=== PATIENT | male | born 1965 | race Caucasian/White ===

== ENCOUNTER 2016-07-02 14:15 | Inpatient (IN) ==
[2016-07-02] MEDS ORDERED: NON-FORMULARY MEDICATION 1 EACH EACH (Oxygen [Oxygen] 3 L) NS SCH (21:45)
[2016-07-02] MEDS ORDERED: D5% in Water 1,000 ML IVC PRN (21:49)
[2016-07-02] MEDS ORDERED: *HR* Dextrose 50 % in Water (Syg) 50 ML SYRINGE IVP PRN (21:49)
[2016-07-02] MEDS ORDERED: Dextrose Gel 15 GM PO PRN ×2 (21:49)
[2016-07-02] MEDS: Insulin LISPRO 300 UNITS/3 ML VIAL SQ SCH (22:35)
[2016-07-02] MEDS: *HR* OxyCODONE Immed Rel 5 MG TABLET PO PRN (22:36)
[2016-07-02] MEDS: INSULIN DEGLUDEC SQ SCH (22:38)
[2016-07-02] MEDS ORDERED: MOM Conc 10 ML UD.LIQ PO PRN (23:11)
[2016-07-03] MEDS: Acetaminophen 325 MG TABLET PO PRN (01:10)
[2016-07-03] MEDS: *HR* OxyCODONE Immed Rel 5 MG TABLET PO PRN ×5 (03:10→21:43)
[2016-07-03 06:44] LABS: Basophils # 0.1 K/mcL (0.0-0.2); Basophils % 0.8 %; Eosinophils # 0.5 K/mcL (0.0-0.6); Eosinophils % 4.1 %; Hematocrit 28.2 % (37.5-50.1); Hemoglobin 8.6 g/dL (12.9-16.9); Immature Granulocytes % 0.4 % (0-4); Lymphocytes # 2.6 K/mcL (0.6-4.6); Lymphocytes % 22.3 %; Mean Corpuscular HGB Conc 30.5 g/dL (31.6-35.5); Mean Corpuscular Hemoglobin 25.4 pg (28.0-33.3); Mean Corpuscular Volume 83.4 fL (83.0-100.0); Mean Platelet Volume 9.3 fL (9.4-12.4); Monocytes # 1.2 K/mcL (0.0-1.3); Monocytes % 9.8 %; Neutrophils # 7.4 K/mcL (1.6-8.9); Platelet Count 419 K/mcL (140-400); Red Blood Count 3.38 M/mcL (4.19-5.50); Red Cell Distribution Width 14.1 % (11.5-14.5); Segmented Neutrophils % 62.6 %
[2016-07-03 06:46] LABS: INR 1.4; Prothrombin Time 15.2 Seconds (9.4-12.1)
[2016-07-03 06:49] LABS: Activated Partial Thrombo Time 34.3 Seconds (26.0-36.0)
[2016-07-03] MEDS: Aspirin Enteric Coated 81 MG Tablet PO SCH (08:11)
[2016-07-03] MEDS: FLUoxetine 20 MG CAPSULE PO SCH ×2 (08:12→21:44)
[2016-07-03] MEDS: Furosemide 40 MG TABLET PO SCH ×2 (08:12→21:45)
[2016-07-03] MEDS: *HR* Enoxaparin 40 MG/0.4 ML SYRINGE SQ SCH (08:13)
[2016-07-03] MEDS: Insulin LISPRO 300 UNITS/3 ML VIAL SQ SCH ×4 (08:14→21:38)
[2016-07-03] MEDS: (Breo Ellipta 100-25 Mcg Inh) IH SCH (08:14)
[2016-07-03] MEDS: INSULIN DEGLUDEC SQ SCH ×2 (08:14→21:45)
[2016-07-03] MEDS: DAPTOMYCIN IVPB SCH (09:20)
[2016-07-03] MEDS: SODIUM CHLORIDE MINI 0.9% IVPB SCH (09:20)
[2016-07-03] MEDS: Nystatin POWDER 30 GM BOTTLE TP SCH ×2 (09:38→21:48)
[2016-07-03 10:13] LABS: Calcium 8.6 mg/dL (8.6-10.8); Potassium 4.7 mEq/L (3.5-4.5)
--- NOTE | 2016-07-03 10:51 | Internal Med History&Physical ---
Date of Encounter: 07/03/16 Time of Encounter: 10:39 Assessment and Plan (1) S/P AKA (above knee amputation) Current visit: Yes Status: Acute Patient is here for rehabilitation status post above-knee amputation. Qualifiers: Laterality: right Qualified Code(s): Z89.611 - Acquired absence of right leg above knee (2) Foot ulcer Current visit: No Status: Acute Patient developed diabetic foot ulcer that was apparently not healing and had strep surgeons were that he was getting set. Qualifiers: Laterality: left Qualified Code(s): L97.529 - Non-pressure chronic ulcer of other part of left foot with unspecified severity (3) Foot ulcer due to secondary DM Current visit: Yes Status: Acute See above (4) Elevated troponin Current visit: No Status: Acute Previously noted (5) Chronic kidney disease (CKD) Current visit: No Status: Acute Chronic kidney disease is noted to have slight improvement in his creatinine from previous labs Qualifiers: Chronic kidney disease stage: stage 3 (moderate) Qualified Code(s): N18.3 - Chronic kidney disease, stage 3 (moderate) (6) Obesity Current visit: No Status: Acute Patient has been advised to lose weight for his sleep apnea and general health Qualifiers: Obesity type: due to excess calories Obesity severity: unspecified obesity severity Qualified Code(s): E66.09 - Other obesity due to excess calories (7) DKA (diabetic ketoacidoses) Current visit: No Status: Acute Patient apparently had DKA is very difficult hostile at times. Qualifiers: Diabetes mellitus type: type 2 Diabetes mellitus complication detail: without coma Qualified Code(s): E13.10 - Other specified diabetes mellitus with ketoacidosis without coma (8) Bacteremia due to group B Streptococcus Current visit: Yes Status: Acute This is reported in the past and the reason for the amputation (9) Shortness of breath Current visit: No Status: Acute Patient has restrictive lung disease and anxiety. (10) Anxiety about health Current visit: No Status: Acute She has a lot of anxiety. He gets short of breath than that exacerbates his anxiety Internal Medicine - H&P: HPI Chief complaint: Patient was transferred here from the acute inpatient hospital where he und Admitted From: Hospital to Hospital Transfer Plans for Post Hospital Care: Home History of present illness: Mr. Hewitt is a 51 year old male Patient apparently several weeks ago had a below knee amputation and ended up with staph infection that was reported to me. Because of this they revise the surgery and did above-knee amputation. Past Med Surg Social Fam HX - Past Medical History Medical history: CHF, COPD, diabetes, hypertension, renal disease Psychiatric history: anxiety, depression - Past Surgical History Surgical History: appendectomy, other - Social History Smoking Status: Current every day smoker Packs per day: 1 pack Smokeless Tobacco Status: No Alcohol use: none Drug use: none - Family History Father Adopted: No Family Member Ethnicity: Non- Living Status: Hx Family Cardiac Disorders: Yes Hx Family Respiratory Disorders: No Hx Family Cancer: No Hx Family GI Disorders: No Hx Family Endocrine Disorder: Yes (Diabetic) Hx Family Neuromuscular Disorders: No Hx Family Neurologic Disorders: No Hx Family HEENT Disorders: No Hx Family Autoimmune Disorders: No Internal Medicine - H&P: Meds Insulin ASPART [Novolog Flexpen] 15 units SQ TIDAC 11/01/14 [History] Insulin Degludec [Tresiba Flextouch U-100] 70 unit SQ BID 01/04/16 [History] Amlodipine Besylate [Amlodipine Besylate] 10 mg PO DAILY 05/21/16 [History] Fluticasone/Vilanterol [Breo Ellipta 100-25 Mcg INH] 1 each IH DAILY 05/21/16 [ History] Lisinopril [Zestril] 2.5 mg PO DAILY 05/21/16 [History] Oxygen 3 l NS CONT 05/21/16 [History] Acetaminophen [Tylenol] 650 mg PO Q6HR PRN 07/02/16 [History] Aspirin [Lo-Dose Aspirin EC] 81 mg PO DAILY 07/02/16 [History] Buspirone HCl [Buspar] 7.5 mg PO BID 07/02/16 [History] Carvedilol [Coreg] 3.125 mg PO BIDWM 07/02/16 [History] Cyclobenzaprine [Flexeril] 10 mg PO TID PRN 07/02/16 [History] Daptomycin [Cubicin] 500 mg IV Q24H 07/02/16 [History] Enoxaparin [Lovenox] 40 mg SQ DAILY 07/02/16 [History] FLUoxetine HCl [PROzac] 20 mg PO BID 07/02/16 [History] Furosemide [Lasix] 40 mg PO BID 07/02/16 [History] HydrALAZINE 25 mg PO BID 07/02/16 [History] Nystatin POWDER [Nystop] 1 appl TP BID 07/02/16 [History] OxyCODONE Immed Rel [Roxicodone 5 MG] 10 mg PO Q4HR PRN 07/02/16 [History] OxyCODONE Immed Rel [Roxicodone 5 MG] 20 mg PO Q4HR PRN 07/02/16 [History] Allergies tramadol Allergy (Verified 11/01/14 11:40) Nausea vancomycin Allergy (Verified 11/01/14 11:40) Hives All Systems PM: A 10-system review of systems was performed and is negative for pertinent findings except as documented above in the HPI. - Constitutional Vitals: Temp Pulse Resp BP Pulse Ox 97.6 F 108 18 105/70 93 07/03/16 07:24 07/03/16 07:24 07/03/16 07:24 07/03/16 07:24 07/03/16 07:24 - Head Head exam: Present: atraumatic, normal inspection, normocephalic - Neck Neck exam general surgery: Present: supple, trachea midline. Absent: lymphadenopathy - Respiratory Respiratory exam: Present: CTAB. Absent: accessory muscle use, rales, rhonchi, wheezes - Cardiovascular Cardiovascular exam: Present: RRR, +S1, +S2. Absent: diastolic murmur, gallop, rubs, systolic murmur Additional comments: distant - GI/Abdominal GI/Abdominal exam: Present: normal bowel sounds, soft, no peritoneal signs. Absent: distended, tenderness Additional comments: Nontender obese - Expanded Lower Extremities Exam Lower Leg exam: Present: swelling (Is minimal swelling in the left leg. He is missing his left great toe due to previous surgery. He has above knee amputation on the right) Internal Med - H&P Results - Labs CBC & Chem 7: 07/03/16 06:35 07/03/16 06:35 Labs: Short CBC 07/03/16 Range/Units 06:35 WBC 11.8 H (4.3-11.1) K/mcL Hgb 8.6 L (12.9-16.9) g/dL Hct 28.2 L (37.5-50.1) % Plt Count 419 H (140-400) K/mcL Neutrophils # 7.4 (1.6-8.9) K/mcL BMP 07/03/16 06:35 Sodium 137 Potassium 4.7 H Chloride 101 Carbon Dioxide 29 BUN 18 Creatinine 1.94 H Glucose 144 H Calcium 8.6 There is a slight improvement in his creatinine. Also the potassium is down slightly
[2016-07-04] MEDS: *HR* OxyCODONE Immed Rel 5 MG TABLET PO PRN ×5 (01:24→21:50)
[2016-07-04] MEDS: Furosemide 40 MG TABLET PO SCH ×2 (08:25→21:48)
[2016-07-04] MEDS: Aspirin Enteric Coated 81 MG Tablet PO SCH (08:25)
[2016-07-04] MEDS: FLUoxetine 20 MG CAPSULE PO SCH ×2 (08:26→21:50)
[2016-07-04] MEDS: *HR* Enoxaparin 40 MG/0.4 ML SYRINGE SQ SCH (08:29)
[2016-07-04] MEDS: Insulin LISPRO 300 UNITS/3 ML VIAL SQ SCH ×4 (08:30→21:47)
[2016-07-04] MEDS: (Breo Ellipta 100-25 Mcg Inh) IH SCH (08:32)
[2016-07-04] MEDS: INSULIN DEGLUDEC SQ SCH ×2 (08:32→21:50)
[2016-07-04] MEDS: Nystatin POWDER 30 GM BOTTLE TP SCH ×2 (08:32→21:48)
[2016-07-04] MEDS: Acetaminophen 325 MG TABLET PO PRN ×2 (08:40→15:26)
[2016-07-04] MEDS: DAPTOMYCIN IVPB SCH (08:42)
[2016-07-04] MEDS: SODIUM CHLORIDE MINI 0.9% IVPB SCH (08:42)
[2016-07-04] MEDS: *HR* LORazepam 1 MG TABLET PO PRN (16:26)
--- NOTE | 2016-07-04 23:21 | Internal Med Progress Note ---
Date of Encounter: 07/04/16 Time of Encounter: 23:18 - Assessment and plan (1) S/P AKA (above knee amputation) unilateral Current Visit: Yes Status: Acute Assessment and plan: Pain being managed with [place] sats and Flexeril for the spasm. PTOT to work on improving transfer, balance, improving ADL. Qualifiers: Laterality: left Qualified Code(s): Z89.612 - Acquired absence of left leg above knee (2) Essential hypertension Current Visit: Yes Status: Chronic Assessment and plan: Been on the low side. 102 systolic. Norvasc will be held. On hydralazine and Lasix and lisinopril for chronic CHF. (3) COPD (chronic obstructive pulmonary disease) Current Visit: Yes Status: Chronic Assessment and plan: Stable on O2 when necessary Qualifiers: COPD type: COPD with acute exacerbation Qualified Code(s): J44.1 - Chronic obstructive pulmonary disease with (acute) exacerbation (4) Diabetes mellitus Current Visit: No Status: Chronic Qualifiers: Diabetes mellitus type: type 2 Diabetes mellitus complication status: with kidney complications Diabetes mellitus complication detail: with chronic kidney disease Diabetes mellitus detention insulin use: with detention use Chronic kidney disease stage: stage 3 (moderate) Qualified Code(s): E11.22 - Type 2 diabetes mellitus with diabetic chronic kidney disease; N18.3 - Chronic kidney disease, stage 3 (moderate); Z79.4 - termite exterminator helper (current) use of insulin (5) MRSA (methicillin resistant staph aureus) culture positive Current Visit: Yes Status: Chronic Assessment and plan: on cubicin - Time Spent With Patient less than 15 minutes - Subjective Interval history: Complains of excessive postop pain. Also complains of muscle spasm. Denies any shortness of breath. No chest pain. - Constitutional Vitals: Temp Pulse Resp BP Pulse Ox 97.0 F L 96 18 102/71 99 07/04/16 19:00 07/04/16 19:00 07/04/16 19:00 07/04/16 19:00 07/04/16 19:00 General appearance: Present: A&O X 3, pleasant, no acute distress - Respiratory Respiratory exam: Present: CTAB. Absent: accessory muscle use, rales, rhonchi, wheezes - Cardiovascular Cardiovascular exam: Present: RRR, +S1, +S2. Absent: diastolic murmur, gallop, rubs, systolic murmur - GI/Abdominal GI/Abdominal exam: Present: normal bowel sounds, soft, no peritoneal signs. Absent: distended, tenderness - Extremities Exam Additional comments: Left [id number] amputation. Internal Medicine: Result - Labs CBC & Chem 7: 07/03/16 06:35 07/03/16 06:35 - ABG Interpretation ABG results: PT/INR, D-dimer PT 15.2 Seconds (9.4-12.1) H 07/03/16 06:35 Consult Discharge Plan - Plan Referrals: NO,PCP [Primary Care Provider] - (Follow up with Javid Aclantar MD in 6-8 wks [address] [facility], [facility] [address] [place], [place] [phone] Sumaya Richardson CNP, PCP [address] [place], [place] [phone])
[2016-07-05] MEDS: *HR* OxyCODONE Immed Rel 5 MG TABLET PO PRN ×5 (03:35→21:25)
[2016-07-05] MEDS: Nystatin POWDER 30 GM BOTTLE TP SCH ×2 (08:29→21:41)
[2016-07-05] MEDS: *HR* Enoxaparin 40 MG/0.4 ML SYRINGE SQ SCH (08:48)
[2016-07-05] MEDS: *HR* LORazepam 1 MG TABLET PO PRN ×2 (08:48→18:10)
[2016-07-05] MEDS: Aspirin Enteric Coated 81 MG Tablet PO SCH (08:49)
[2016-07-05] MEDS: Furosemide 40 MG TABLET PO SCH ×2 (08:49→21:26)
[2016-07-05] MEDS: FLUoxetine 20 MG CAPSULE PO SCH ×2 (08:49→21:26)
[2016-07-05] MEDS: SODIUM CHLORIDE MINI 0.9% IVPB SCH (08:50)
[2016-07-05] MEDS: DAPTOMYCIN IVPB SCH (08:50)
[2016-07-05] MEDS: (Breo Ellipta 100-25 Mcg Inh) IH SCH (08:53)
[2016-07-05] MEDS: INSULIN DEGLUDEC SQ SCH ×2 (08:55→21:26)
[2016-07-05] MEDS: Insulin LISPRO 300 UNITS/3 ML VIAL SQ SCH ×4 (08:55→21:19)
[2016-07-05] MEDS: Acetaminophen 325 MG TABLET PO PRN ×2 (10:11→18:43)
[2016-07-06] MEDS: Insulin LISPRO 300 UNITS/3 ML VIAL SQ SCH ×4 (09:00→21:37)
[2016-07-06] MEDS: *HR* Enoxaparin 40 MG/0.4 ML SYRINGE SQ SCH (09:00)
[2016-07-06] MEDS: *HR* OxyCODONE Immed Rel 5 MG TABLET PO PRN ×5 (09:01→23:22)
[2016-07-06] MEDS: FLUoxetine 20 MG CAPSULE PO SCH ×2 (09:02→21:43)
[2016-07-06] MEDS: Furosemide 40 MG TABLET PO SCH ×2 (09:03→21:44)
[2016-07-06] MEDS: Nystatin POWDER 30 GM BOTTLE TP SCH (09:03)
[2016-07-06] MEDS: Aspirin Enteric Coated 81 MG Tablet PO SCH (09:03)
[2016-07-06] MEDS: (Breo Ellipta 100-25 Mcg Inh) IH SCH (09:03)
[2016-07-06] MEDS: INSULIN DEGLUDEC SQ SCH ×2 (09:03→21:45)
--- NOTE | 2016-07-06 13:29 | Internal Med Progress Note ---
Date of Encounter: 07/06/16 Time of Encounter: 13:28 - Assessment and plan (1) S/P AKA (above knee amputation) unilateral Current Visit: Yes Status: Acute Assessment and plan: Pain being managed with [place] sats and Flexeril for the spasm. PTOT to work on improving transfer, balance, improving ADL. Qualifiers: Laterality: left Qualified Code(s): Z89.612 - Acquired absence of left leg above knee (2) Essential hypertension Current Visit: Yes Status: Chronic Assessment and plan: Been on the low side. 102 systolic. Norvasc will be held. On hydralazine and Lasix and lisinopril for chronic CHF. (3) COPD (chronic obstructive pulmonary disease) Current Visit: Yes Status: Chronic Assessment and plan: Stable on O2 when necessary Qualifiers: COPD type: COPD with acute exacerbation Qualified Code(s): J44.1 - Chronic obstructive pulmonary disease with (acute) exacerbation (4) Diabetes mellitus Current Visit: No Status: Chronic Qualifiers: Diabetes mellitus type: type 2 Diabetes mellitus complication status: with kidney complications Diabetes mellitus complication detail: with chronic kidney disease Diabetes mellitus mcfp insulin use: with mcfp use Chronic kidney disease stage: stage 3 (moderate) Qualified Code(s): E11.22 - Type 2 diabetes mellitus with diabetic chronic kidney disease; N18.3 - Chronic kidney disease, stage 3 (moderate); 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 Complains of excessive postop pain. Also complains of muscle spasm. Denies any shortness of breath. No chest pain. - Constitutional Vitals: Temp Pulse Resp BP Pulse Ox 97.6 F 69 18 94/60 92 07/06/16 07:00 07/06/16 07:00 07/06/16 07:00 07/06/16 07:00 07/06/16 07:00 General appearance: Present: A&O X 3, pleasant, no acute distress - Respiratory Respiratory exam: Present: decreased breath sounds. Absent: accessory muscle use, rales, rhonchi, wheezes - Cardiovascular Cardiovascular exam: Present: RRR, +S1, +S2. Absent: diastolic murmur, gallop, rubs, systolic murmur - GI/Abdominal GI/Abdominal exam: Present: normal bowel sounds, soft, no peritoneal signs. Absent: distended, tenderness - Extremities Exam Extremities exam: Present: warm, radial pulses palpable and symetrical. Absent : calf tenderness, cyanotic, pedal edema Internal Medicine: Result - Labs CBC & Chem 7: 07/03/16 06:35 07/03/16 06:35 - ABG Interpretation ABG results: PT/INR, D-dimer PT 15.2 Seconds (9.4-12.1) H 07/03/16 06:35 Consult Discharge Plan - Plan Referrals: NO,PCP [Primary Care Provider] - (Follow up with Javid Alcantar MD in 6-8 wks [address] [facility], [place], [facility] [address] [place], [place] [phone] Sumaya Richardson CNP, PCP [address] [place], [place] [phone])
[2016-07-06] MEDS: DAPTOMYCIN IVPB SCH (14:55)
[2016-07-06] MEDS: *HR* LORazepam 1 MG TABLET PO PRN (14:55)
[2016-07-06] MEDS: SODIUM CHLORIDE MINI 0.9% IVPB SCH (14:55)
[2016-07-06] MEDS ORDERED: Nystatin POWDER 30 GM BOTTLE TP PRN (17:11)
[2016-07-07 07:12] LABS: Basophils # 0.1 K/mcL (0.0-0.2); Basophils % 0.7 %; Eosinophils # 0.7 K/mcL (0.0-0.6); Hematocrit 29.8 % (37.5-50.1); Hemoglobin 9.1 g/dL (12.9-16.9); Immature Granulocytes % 0.7 % (0-4); Lymphocytes # 2.4 K/mcL (0.6-4.6); Lymphocytes % 20.1 %; Mean Corpuscular HGB Conc 30.5 g/dL (31.6-35.5); Mean Corpuscular Hemoglobin 25.6 pg (28.0-33.3); Mean Corpuscular Volume 83.9 fL (83.0-100.0); Mean Platelet Volume 9.8 fL (9.4-12.4); Monocytes # 1.1 K/mcL (0.0-1.3); Monocytes % 9.1 %; Neutrophils # 7.5 K/mcL (1.6-8.9); Platelet Count 407 K/mcL (140-400); Red Blood Count 3.55 M/mcL (4.19-5.50); Red Cell Distribution Width 14.8 % (11.5-14.5); Segmented Neutrophils % 63.4 %
[2016-07-07 07:14] LABS: INR 1.5; Prothrombin Time 16.2 Seconds (9.4-12.1)
[2016-07-07 07:18] LABS: Calcium 8.5 mg/dL (8.6-10.8); Potassium 5.2 mEq/L (3.5-4.5)
[2016-07-07] MEDS: *HR* OxyCODONE Immed Rel 5 MG TABLET PO PRN ×4 (07:51→21:39)
[2016-07-07] MEDS: FLUoxetine 20 MG CAPSULE PO SCH ×2 (09:31→21:39)
[2016-07-07] MEDS: Insulin LISPRO 300 UNITS/3 ML VIAL SQ SCH ×4 (09:32→21:37)
[2016-07-07] MEDS: Aspirin Enteric Coated 81 MG Tablet PO SCH (09:32)
[2016-07-07] MEDS: Furosemide 40 MG TABLET PO SCH ×2 (09:32→21:39)
[2016-07-07] MEDS: *HR* Enoxaparin 40 MG/0.4 ML SYRINGE SQ SCH (09:32)
[2016-07-07] MEDS: (Breo Ellipta 100-25 Mcg Inh) IH SCH (09:33)
[2016-07-07] MEDS: INSULIN DEGLUDEC SQ SCH ×2 (09:36→21:41)
--- NOTE | 2016-07-07 14:16 | Internal Med Progress Note ---
Date of Encounter: 07/07/16 Time of Encounter: 14:00 - Assessment and plan (1) S/P AKA (above knee amputation) Current Visit: Yes Status: Acute Assessment and plan: See above reason for his rehabilitation Qualifiers: Laterality: right Qualified Code(s): Z89.611 - Acquired absence of right leg above knee (2) Foot ulcer Current Visit: No Status: Acute Assessment and plan: Reason for the amputation on significant strep. Qualifiers: Laterality: left Qualified Code(s): L97.529 - Non-pressure chronic ulcer of other part of left foot with unspecified severity (3) Foot ulcer due to secondary DM Current Visit: Yes Status: Acute Assessment and plan: See above (4) Elevated troponin Current Visit: No Status: Acute (5) Chronic kidney disease (CKD) Current Visit: No Status: Acute Qualifiers: Chronic kidney disease stage: stage 3 (moderate) Qualified Code(s): N18.3 - Chronic kidney disease, stage 3 (moderate) (6) Obesity Current Visit: No Status: Acute Assessment and plan: Patient is been counseled regarding weight and BMI Qualifiers: Obesity type: due to excess calories Obesity severity: unspecified obesity severity Qualified Code(s): E66.09 - Other obesity due to excess calories (7) DKA (diabetic ketoacidoses) Current Visit: No Status: Acute Qualifiers: Diabetes mellitus type: type 2 Diabetes mellitus complication detail: without coma Qualified Code(s): E13.10 - Other specified diabetes mellitus with ketoacidosis without coma (8) Bacteremia due to group B Streptococcus Current Visit: Yes Status: Acute Assessment and plan: Ultimate cause for the amputation. (9) Shortness of breath Current Visit: No Status: Acute (10) Anxiety about health Current Visit: No Status: Acute - Subjective Interval history: Patient's only complaint today was he thinks he dislocated his shoulder standing and sitting during therapy. I will check an x-ray but I doubted as he is sleeping quietly at the moment - Constitutional Vitals: Temp Pulse Resp BP Pulse Ox 98.4 F 70 18 115/80 100 07/07/16 07:00 07/07/16 07:00 07/07/16 07:00 07/07/16 07:00 07/07/16 07:00 General appearance: Present: A&O X 3, pleasant, no acute distress - Head Head exam: Present: atraumatic, normal inspection, normocephalic - Neck Neck exam general surgery: Present: supple, trachea midline. Absent: lymphadenopathy - Respiratory Respiratory exam: Present: CTAB. Absent: accessory muscle use, rales, rhonchi, wheezes - Cardiovascular Cardiovascular exam: Present: RRR, +S1, +S2. Absent: diastolic murmur, gallop, rubs, systolic murmur - GI/Abdominal GI/Abdominal exam: Present: normal bowel sounds, soft, no peritoneal signs. Absent: distended, tenderness Internal Medicine: Result - Labs CBC & Chem 7: 07/07/16 06:50 07/07/16 06:50 Labs: Short CBC 07/07/16 Range/Units 06:50 WBC 11.8 H (4.3-11.1) K/mcL Hgb 9.1 L (12.9-16.9) g/dL Hct 29.8 L (37.5-50.1) % Plt Count 407 H (140-400) K/mcL Neutrophils # 7.5 (1.6-8.9) K/mcL BMP 07/07/16 06:50 Sodium 140 Potassium 5.2 H Chloride 104 Carbon Dioxide 23 BUN 38 H Creatinine 2.46 H Glucose 94 Calcium 8.5 L Patient's renal function will be watched. Appears chronic - ABG Interpretation ABG results: PT/INR, D-dimer PT 16.2 Seconds (9.4-12.1) H 07/07/16 06:50 Consult Discharge Plan - Plan Referrals: NO,PCP [Primary Care Provider] - (Follow up with Javid Alcantar MD in 6-8 wks [address] [facility], [facility] [address] [place], [place] [phone] Sumaya Richardson CNP, PCP [address] [place], [place] [phone])
[2016-07-07] MEDS: DAPTOMYCIN IVPB SCH (14:56)
[2016-07-07] MEDS: SODIUM CHLORIDE MINI 0.9% IVPB SCH (14:56)
[2016-07-08] MEDS: Insulin LISPRO 300 UNITS/3 ML VIAL SQ SCH ×4 (08:25→21:57)
[2016-07-08] MEDS: Furosemide 40 MG TABLET PO SCH ×2 (08:27→21:55)
[2016-07-08] MEDS: FLUoxetine 20 MG CAPSULE PO SCH ×2 (08:29→21:55)
[2016-07-08] MEDS: (Breo Ellipta 100-25 Mcg Inh) IH SCH (08:30)
[2016-07-08] MEDS: Aspirin Enteric Coated 81 MG Tablet PO SCH (08:30)
[2016-07-08] MEDS: *HR* Enoxaparin 40 MG/0.4 ML SYRINGE SQ SCH (08:31)
[2016-07-08] MEDS: *HR* OxyCODONE Immed Rel 5 MG TABLET PO PRN ×3 (09:50→23:03)
[2016-07-08] MEDS: INSULIN DEGLUDEC SQ SCH ×2 (09:51→21:56)
--- NOTE | 2016-07-08 14:17 | Internal Med Progress Note ---
Date of Encounter: 07/08/16 Time of Encounter: 14:15 - Assessment and plan (1) S/P AKA (above knee amputation) Current Visit: Yes Status: Acute Qualifiers: Laterality: right Qualified Code(s): Z89.611 - Acquired absence of right leg above knee (2) Foot ulcer Current Visit: No Status: Acute Assessment and plan: This was the cause of the amputation ultimately was strep infection Qualifiers: Laterality: left Qualified Code(s): L97.529 - Non-pressure chronic ulcer of other part of left foot with unspecified severity (3) Foot ulcer due to secondary DM Current Visit: Yes Status: Acute Assessment and plan: See above (4) Elevated troponin Current Visit: No Status: Acute Assessment and plan: Currently not a problem (5) Chronic kidney disease (CKD) Current Visit: No Status: Acute Qualifiers: Chronic kidney disease stage: stage 3 (moderate) Qualified Code(s): N18.3 - Chronic kidney disease, stage 3 (moderate) (6) Obesity Current Visit: No Status: Acute Assessment and plan: Noted above Qualifiers: Obesity type: due to excess calories Obesity severity: unspecified obesity severity Qualified Code(s): E66.09 - Other obesity due to excess calories (7) DKA (diabetic ketoacidoses) Current Visit: No Status: Acute Qualifiers: Diabetes mellitus type: type 2 Diabetes mellitus complication detail: without coma Qualified Code(s): E13.10 - Other specified diabetes mellitus with ketoacidosis without coma (8) Bacteremia due to group B Streptococcus Current Visit: Yes Status: Acute Assessment and plan: Cause of amputation and lower diabetic foot ulcers (9) Shortness of breath Current Visit: No Status: Acute (10) Anxiety about health Current Visit: No Status: Acute - Time Spent With Patient less than 15 minutes - Subjective Interval history: Patient's only complaint today was he thinks he dislocated his shoulder standing and sitting during therapy. I will check an x-ray but I doubted as he is sleeping quietly at the moment. Upon questioning after he rested he states his shoulders fine had no more complaints and so an x-ray was not done. staff feels patient is not very motivated not to interested in therapy. - Constitutional Vitals: Temp Pulse Resp BP Pulse Ox 98.0 F 88 20 125/75 98 07/08/16 07:00 07/08/16 07:00 07/08/16 07:00 07/08/16 07:00 07/08/16 07:00 General appearance: Present: A&O X 3, pleasant, no acute distress - Head Head exam: Present: atraumatic, normal inspection, normocephalic - Neck Neck exam general surgery: Present: supple, trachea midline. Absent: lymphadenopathy - Respiratory Respiratory exam: Present: CTAB. Absent: accessory muscle use, rales, rhonchi, wheezes - Cardiovascular Cardiovascular exam: Present: RRR, +S1, +S2. Absent: diastolic murmur, gallop, rubs, systolic murmur - GI/Abdominal GI/Abdominal exam: Present: normal bowel sounds, soft, no peritoneal signs. Absent: distended, tenderness Internal Medicine: Result - Labs CBC & Chem 7: 07/07/16 06:50 07/07/16 06:50 Labs: Lab is stable - ABG Interpretation ABG results: PT/INR, D-dimer PT 16.2 Seconds (9.4-12.1) H 07/07/16 06:50 Consult Discharge Plan - Plan Referrals: FADI JIMENEZ CNP [Other] ([place], [place] APPT 07/21/2016 AT 2:30 PM) KYLE EMMANUEL MD [Other] ([facility] APPT 07/29/2016 AT 12:40) NO,PCP [Primary Care Provider] - ()
[2016-07-08] MEDS: *HR* LORazepam 1 MG TABLET PO PRN (18:47)
[2016-07-08] MEDS: Acetaminophen 325 MG TABLET PO PRN (21:56)
[2016-07-09] MEDS: *HR* OxyCODONE Immed Rel 5 MG TABLET PO PRN ×4 (04:28→22:33)
[2016-07-09] MEDS: Insulin LISPRO 300 UNITS/3 ML VIAL SQ SCH ×4 (07:58→22:31)
[2016-07-09] MEDS: INSULIN DEGLUDEC SQ SCH ×2 (08:00→22:32)
[2016-07-09] MEDS: *HR* Enoxaparin 40 MG/0.4 ML SYRINGE SQ SCH (10:09)
[2016-07-09] MEDS: Aspirin Enteric Coated 81 MG Tablet PO SCH (10:10)
[2016-07-09] MEDS: FLUoxetine 20 MG CAPSULE PO SCH ×2 (10:11→22:32)
[2016-07-09] MEDS: (Breo Ellipta 100-25 Mcg Inh) IH SCH (10:11)
[2016-07-09] MEDS: Furosemide 40 MG TABLET PO SCH ×2 (10:11→22:32)
--- NOTE | 2016-07-09 13:41 | Physical Med Progress Note ---
Date of Encounter: 07/09/16 Time of Encounter: 13:36 Physical Medicine-PN: Subj Interval history: PCC Note Mr. Hewitt was admitted following a left AKA. He reports that he drove himself to his follow up appointment yesterday. He has been refusing therapies during his acute stay. 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 Patient's refusal to participate with therapy and to be compliant with medical recommendations has significantly limited his progress. Plan for discharge to home on 07/11/16. - Constitutional Vitals: Vital Signs Temp Pulse Resp BP Pulse Ox 07/09/16 07:07 97.0 F L 84 20 104/64 96 07/08/16 19:30 98.3 F 83 20 124/73 96 Intake and Output 07/08/16 07/09/16 07/09/16 23:59 07:59 15:59 Intake Total 120 / 120 Output Total 1350 / 1350 Balance -1350 / -1350 120 / 120 Intake: Oral 120 / 120 Output: Urine 1350 / 1350 Other: Meal Breakfast Percent of Meal Consumed 0% Blood Glucose* 273 210 57 Physical Medicine-PN: Obj Data - Labs CBC & Chem 7: 07/07/16 06:50 07/07/16 06:50 Labs: Laboratory Results - last 24 hr 07/08/16 07/08/16 11:54 20:15 POC Glucose 263 H 273 H - ABG Interpretation ABG results: PT/INR, D-dimer PT 16.2 Seconds (9.4-12.1) H 07/07/16 06:50 Consult Discharge Plan - Plan Referrals: FADI JIMENEZ CNP [Other] ([place], [place] APPT 07/21/2016 AT 2:30 PM) KYLE EMMANUEL MD [Other] ([facility] APPT 07/29/2016 AT 12:40) NO,PCP [Primary Care Provider] - ()
[2016-07-09] MEDS: Doxycycline 100 MG CAPSULE PO SCH (22:31)
[2016-07-09] MEDS: *HR* LORazepam 1 MG TABLET PO PRN (22:33)
[2016-07-10] MEDS: *HR* OxyCODONE Immed Rel 5 MG TABLET PO PRN ×4 (05:57→21:56)
[2016-07-10] MEDS: *HR* Enoxaparin 40 MG/0.4 ML SYRINGE SQ SCH (08:00)
[2016-07-10] MEDS: Insulin LISPRO 300 UNITS/3 ML VIAL SQ SCH ×4 (08:00→21:54)
[2016-07-10] MEDS: FLUoxetine 20 MG CAPSULE PO SCH ×2 (08:01→21:55)
[2016-07-10] MEDS: Doxycycline 100 MG CAPSULE PO SCH ×2 (08:01→21:54)
[2016-07-10] MEDS: (Breo Ellipta 100-25 Mcg Inh) IH SCH (08:02)
[2016-07-10] MEDS: Furosemide 40 MG TABLET PO SCH ×2 (08:02→21:56)
[2016-07-10] MEDS: Aspirin Enteric Coated 81 MG Tablet PO SCH (08:02)
[2016-07-10] MEDS: INSULIN DEGLUDEC SQ SCH ×2 (08:03→21:57)
--- NOTE | 2016-07-10 14:34 | Internal Med Progress Note ---
Date of Encounter: 07/10/16 Time of Encounter: 14:32 - Assessment and plan (1) S/P AKA (above knee amputation) Current Visit: Yes Status: Acute Assessment and plan: Patient had a above the knee left amputation the surgical site looks clean and dry Qualifiers: Laterality: right Qualified Code(s): Z89.611 - Acquired absence of right leg above knee (2) Foot ulcer Current Visit: No Status: Acute Assessment and plan: The reason for the amputated Qualifiers: Laterality: left Qualified Code(s): L97.529 - Non-pressure chronic ulcer of other part of left foot with unspecified severity (3) Foot ulcer due to secondary DM Current Visit: Yes Status: Acute Assessment and plan: Again reason for the amputation (4) Elevated troponin Current Visit: No Status: Acute Assessment and plan: Currently not a problem (5) Chronic kidney disease (CKD) Current Visit: No Status: Acute Assessment and plan: Note it appears to be stable Qualifiers: Chronic kidney disease stage: stage 3 (moderate) Qualified Code(s): N18.3 - Chronic kidney disease, stage 3 (moderate) (6) Obesity Current Visit: No Status: Acute Assessment and plan: Noted Qualifiers: Obesity type: due to excess calories Obesity severity: unspecified obesity severity Qualified Code(s): E66.09 - Other obesity due to excess calories (7) DKA (diabetic ketoacidoses) Current Visit: No Status: Acute Assessment and plan: Resolved Qualifiers: Diabetes mellitus type: type 2 Diabetes mellitus complication detail: without coma Qualified Code(s): E13.10 - Other specified diabetes mellitus with ketoacidosis without coma (8) Bacteremia due to group B Streptococcus Current Visit: Yes Status: Acute Assessment and plan: Reason for amputation (9) Shortness of breath Current Visit: No Status: Acute Assessment and plan: Decondition (10) Anxiety about health Current Visit: No Status: Acute Assessment and plan: Noted - Time Spent With Patient less than 15 minutes - Subjective Interval history: Mr. Hewitt be discharged tomorrow and states he has no needs and is doing well - Constitutional Vitals: Temp Pulse Resp BP Pulse Ox 97.3 F L 95 20 112/66 95 07/10/16 07:08 07/10/16 07:08 07/10/16 07:08 07/10/16 07:08 07/10/16 07:08 General appearance: Present: A&O X 3, pleasant, no acute distress - Head Head exam: Present: atraumatic, normal inspection, normocephalic - Neck Neck exam general surgery: Present: supple, trachea midline. Absent: lymphadenopathy - Respiratory Respiratory exam: Present: CTAB. Absent: accessory muscle use, rales, rhonchi, wheezes - Cardiovascular Cardiovascular exam: Present: RRR, +S1, +S2. Absent: diastolic murmur, gallop, rubs, systolic murmur Internal Medicine: Result - Labs CBC & Chem 7: 07/07/16 06:50 07/07/16 06:50 Labs: Patient has chronic renal failure diabetes etc. Lab appears stable - ABG Interpretation ABG results: PT/INR, D-dimer PT 16.2 Seconds (9.4-12.1) H 07/07/16 06:50 Consult Discharge Plan - Plan Referrals: FADI JIMENEZ CNP [Other] ([place], [place] APPT 07/21/2016 AT 2:30 PM) KYLE EMMANUEL MD [Other] ([facility] APPT 07/29/2016 AT 12:40) NO,PCP [Primary Care Provider] - ()
[2016-07-10] MEDS: *HR* LORazepam 1 MG TABLET PO PRN (21:56)
[2016-07-11 06:53] VITALS: BP 102/63
[2016-07-11 07:17] LABS: Basophils # 0.1 K/mcL (0.0-0.2); Basophils % 0.5 %; Eosinophils # 0.7 K/mcL (0.0-0.6); Eosinophils % 6.9 %; Hematocrit 29.1 % (37.5-50.1); Hemoglobin 9.1 g/dL (12.9-16.9); Immature Granulocytes % 0.5 % (0-4); Lymphocytes # 2.2 K/mcL (0.6-4.6); Lymphocytes % 20.3 %; Mean Corpuscular HGB Conc 31.3 g/dL (31.6-35.5); Mean Corpuscular Hemoglobin 25.9 pg (28.0-33.3); Mean Corpuscular Volume 82.9 fL (83.0-100.0); Mean Platelet Volume 9.3 fL (9.4-12.4); Monocytes # 1.2 K/mcL (0.0-1.3); Monocytes % 11.3 %; Neutrophils # 6.4 K/mcL (1.6-8.9); Platelet Count 360 K/mcL (140-400); Red Blood Count 3.51 M/mcL (4.19-5.50); Red Cell Distribution Width 14.5 % (11.5-14.5); Segmented Neutrophils % 60.5 %
[2016-07-11] MEDS: Insulin LISPRO 300 UNITS/3 ML VIAL SQ SCH ×2 (07:18→11:52)
[2016-07-11 09:03] LABS: Calcium 8.7 mg/dL (8.6-10.8); Potassium 4.5 mEq/L (3.5-4.5)
[2016-07-11] MEDS: *HR* OxyCODONE Immed Rel 5 MG TABLET PO PRN (09:19)
[2016-07-11] MEDS: Aspirin Enteric Coated 81 MG Tablet PO SCH (09:20)
[2016-07-11] MEDS: Furosemide 40 MG TABLET PO SCH (09:20)
[2016-07-11] MEDS: Doxycycline 100 MG CAPSULE PO SCH (09:20)
[2016-07-11] MEDS: FLUoxetine 20 MG CAPSULE PO SCH (09:21)
[2016-07-11] MEDS: (Breo Ellipta 100-25 Mcg Inh) IH SCH (09:21)
[2016-07-11] MEDS: *HR* Enoxaparin 40 MG/0.4 ML SYRINGE SQ SCH (09:21)
[2016-07-11] MEDS: INSULIN DEGLUDEC SQ SCH (09:27)
--- NOTE | 2016-07-11 11:24 | Discharge Summary ---
Date of Encounter: 07/14/16 Time of Encounter: 11:22 - Discharge Diagnosis (1) S/P AKA (above knee amputation) Priority: Primary Status: Acute Comments: Patient was not too interested in continuing therapy but he did okay. He went out to his truck upright and went home with his Qualifiers: Laterality: right Qualified Code(s): Z89.611 - Acquired absence of right leg above knee (2) Foot ulcer Priority: Primary Status: Acute Comments: This the cause of rehabilitation Qualifiers: Laterality: left (3) Foot ulcer due to secondary DM Priority: Primary Status: Acute Comments: See above (4) Elevated troponin Priority: Secondary Status: Acute (5) Chronic kidney disease (CKD) Priority: Secondary Status: Acute Comments: Right now appears to be stable Qualifiers: Chronic kidney disease stage: stage 3 (moderate) Qualified Code(s): N18.3 - Chronic kidney disease, stage 3 (moderate) (6) Obesity Priority: Primary Status: Acute Qualifiers: Obesity type: due to excess calories Obesity severity: unspecified obesity severity Qualified Code(s): E66.09 - Other obesity due to excess calories (7) DKA (diabetic ketoacidoses) Priority: Secondary Status: Acute Qualifiers: Diabetes mellitus type: type 2 Diabetes mellitus complication detail: without coma Qualified Code(s): E13.10 - Other specified diabetes mellitus with ketoacidosis without coma (8) Bacteremia due to group B Streptococcus Priority: Primary Status: Acute Comments: Cause of bacteremia (9) Shortness of breath Priority: Secondary Status: Acute Comments: Noted with any extended endurance problem (10) Anxiety about health Priority: Secondary Status: Acute Comments: Does not seem to be too much of her problem at this point - Discharge Medications Home Medications: Insulin ASPART [Novolog Flexpen] 15 units SQ TIDAC 11/01/14 [History] Insulin Degludec [Tresiba Flextouch U-100] 70 unit SQ BID 01/04/16 [History] Amlodipine Besylate [Amlodipine Besylate] 10 mg PO DAILY 05/21/16 [History] Fluticasone/Vilanterol [Breo Ellipta 100-25 Mcg INH] 1 each IH DAILY 05/21/16 [ History] Lisinopril [Zestril] 2.5 mg PO DAILY 05/21/16 [History] Oxygen 3 l NS CONT 05/21/16 [History] Acetaminophen [Tylenol] 650 mg PO Q6HR PRN 07/02/16 [History] Aspirin [Lo-Dose Aspirin EC] 81 mg PO DAILY 07/02/16 [History] Buspirone HCl [Buspar] 7.5 mg PO BID 07/02/16 [History] Carvedilol [Coreg] 3.125 mg PO BIDWM 07/02/16 [History] Cyclobenzaprine [Flexeril] 10 mg PO TID PRN 07/02/16 [History] Daptomycin [Cubicin] 500 mg IV Q24H 07/02/16 [History] Enoxaparin [Lovenox] 40 mg SQ DAILY 07/02/16 [History] FLUoxetine HCl [PROzac] 20 mg PO BID 07/02/16 [History] Furosemide [Lasix] 40 mg PO BID 07/02/16 [History] HydrALAZINE 25 mg PO BID 07/02/16 [History] Nystatin POWDER [Nystop] 1 appl TP BID 07/02/16 [History] OxyCODONE Immed Rel [Roxicodone 5 MG] 10 mg PO Q4HR PRN 07/02/16 [History] OxyCODONE Immed Rel [Roxicodone 5 MG] 20 mg PO Q4HR PRN 07/02/16 [History] Allergies/Adverse Reactions: Allergies tramadol Allergy (Verified 11/01/14 11:40) Nausea vancomycin Allergy (Verified 11/01/14 11:40) Hives Date of admission: 07/02/16 20:37 Primary care physician: PCP NO Consults: 07/02/16 21:43 Consult to Occupational Therapy [CONS] Routine Comment: Evaluate, develop and implement POC Consult to Physical Therapy [CONS] Routine Comment: Evaluate, develop and implement POC Consult to Recreational Therapy [CONS] Routine Comment: Evaluate, develop and implement POC Consult to Collateral Specialist [CONS] Routine Reason for SW Consult: discharge planning Discharging clinician: Curt Akins Anticipated date of discharge: 07/11/16 - Patient Status Disposition: Home, Self-Care Functional capacity at discharge: wheelchair bound Overall status at discharge: patient is not back to baseline - Discharge Instructions Instructions: Heart Failure (DC), How to Stop Smoking (DC), How to Check Your Blood Sugar (DC), Diabetic Foot Care (DC) Follow Up With: FADI JIMENEZ CNP [Other] ([facility], [place], [place] APPT 07/21/2016 AT 2:30 PM) KYLE EMMANUEL MD [Other] ([facility]PT 07/29/2016 AT 12:40) kristin angeles [Other] - 06/22/17 1:50 pm (ortho follow up) NO,PCP [Primary Care Provider] - () - Diet and Activity Activity: as per physical therapy Diet: diabetic diet Interval History: The patient was brought here after above-knee amputation due to septic foot and has not been particularly motivated. Hospital course: Mr. Hewitt is a 51 year old male When patient was about to leave for an appointment to an outside physician he got a truck with no trouble and was able to wheel himself out there and [place]keyan and go to the appointment. He is going to do outpatient - Time Spent with Patient Total time spent providing and/or coordinating discharge services: Less than 30 minutes - Constitutional Vitals: Temp Pulse Resp BP Pulse Ox 97.5 F L 63 18 102/63 95 07/11/16 06:53 07/11/16 06:53 07/11/16 06:53 07/11/16 06:53 07/11/16 06:53 General appearance: Present: A&O X 3, pleasant, no acute distress - Head Head exam: Present: atraumatic, normal inspection, normocephalic - Neck Neck exam general surgery: Present: supple, trachea midline. Absent: lymphadenopathy - Respiratory Respiratory exam: Present: CTAB. Absent: accessory muscle use, rales, rhonchi, wheezes - Cardiovascular Cardiovascular exam: Present: RRR, +S1, +S2. Absent: diastolic murmur, gallop, rubs, systolic murmur - Expanded Lower Extremities Exam Knee exam: Present: deformity (Patient had above knee amputation on the left it is healing well)
== END 2016-07-11 16:45 | disposition home or self-care (01) | DRG 559 ==
LOC: INPGRE 20:37
PROVIDERS: ADMIT Internal Medicine; ATTEND Internal Medicine